=== PATIENT | female | born 1995 | race Caucasian/White ===

== ENCOUNTER 2017-12-21 05:41 | Inpatient (IN) | payer MEDICAID ==
[2017-12-21] MEDS: LACTATED RINGER'S 500 ML IV ×5 (06:07→22:07)
[2017-12-21] MEDS ORDERED: METHYLERGONOVINE 0.2 MG INJ IM ×2 (06:30→12:00)
[2017-12-21] MEDS ORDERED: OXYTOCIN 30 UNITS/LR 500 ML IV ×4 (06:30→12:00)
[2017-12-21] MEDS ORDERED: HYDROCODONE/APAP (5/325) TAB PO (06:30)
[2017-12-21] MEDS ORDERED: BUTORPHANOL 2 MG INJ IV (06:30)
[2017-12-21] MEDS ORDERED: CARBOPROST 250 MCG INJ IM ×2 (06:30→12:00)
[2017-12-21] MEDS ORDERED: IBUPROFEN 600 MG TAB PO (06:30)
[2017-12-21] MEDS ORDERED: MISOPROSTOL 200 MCG TAB PR ×2 (06:30→12:00)
[2017-12-21] MEDS: BUTORPHANOL 2 MG INJ IV (07:02)
[2017-12-21] MEDS: LACTATED RINGER'S 1,000 ML IV (07:14)
[2017-12-21 07:24] LABS: ADD MAN DIFF? NO
[2017-12-21 07:25] LABS: WHITE BLOOD COUNT 18.5 10^3/ul (4.8-10.8)
[2017-12-21 07:25] LABS: BASOPHILS % 0.2 % (0.0-2.0); EOSINOPHILS % 0.1 % (0.0-7.0); HEMATOCRIT 40.8 % (37.0-47.0); HEMOGLOBIN 13.8 g/dl (12.0-16.0); LYMPHOCYTES # 2.2 10^3/ul (0.8-2.9); LYMPHOCYTES % 11.7 % (15.0-51.0); MEAN CORPUSCULAR HEMOGLOBIN 30.3 pg (29.0-33.0); MEAN CORPUSCULAR HGB CONC 33.8 g/dl (32.0-37.0); MEAN CORPUSCULAR VOLUME 89.5 fl (82.0-101.0); MONOCYTE # 0.8 10^3/ul (0.3-0.9); MONOCYTES % 4.3 % (0.0-11.0); NEUTROPHIL # 15.4 10^3/ul (1.6-7.5); NEUTROPHILS % 83.1 % (39.0-77.0); PLATELET COUNT 207 10^3/UL (140-415); RED BLOOD COUNT 4.56 10^6/ul (4.20-5.40); RED CELL DISTRIBUTION WIDTH 13.9 % (11.5-14.5)
[2017-12-21 07:45] LABS: INR 0.85; PROTIME 11.7 Sec (11.9-14.9); PT RATIO 0.9
[2017-12-21 07:57] LABS: ADD UMIC YES; UR ASCORBIC ACID 20 mg/dL (NEGATIVE); UR BACTERIA FEW /HPF (NONE SEEN); UR BILIRUBIN (Dip) NEGATIVE (NEGATIVE); UR BLOOD (Dip) NEGATIVE (NEGATIVE); UR CALCIUM OXALATE CRYSTAL MANY /HPF (NONE SEEN); UR CLARITY CLOUDY (CLEAR); UR COLOR YELLOW (YELLOW); UR GLUCOSE (Dip) NEGATIVE (NEGATIVE); UR KETONES (Dip) TRACE mg/dL (NEGATIVE); UR LEUKOCYTE ESTERASE (Dip) NEGATIVE Leu/ul (NEGATIVE); UR MUCUS FEW /HPF (NONE SEEN); UR NITRITE (Dip) NEGATIVE (NEGATIVE); UR RBC 1 /HPF (0-5); UR SPECIFIC GRAVITY (Dip) 1.015 (1.003-1.030); UR SQUAMOUS EPITHELIAL CELL FEW /HPF (FEW); UR TOTAL PROTEIN (Dip) NEGATIVE (NEGATIVE); UR UROBILINOGEN (Dip) NEGATIVE (NEGATIVE); UR WBC 4 /HPF (0-5)
[2017-12-21 08:13] LABS: AMPHETAMINE/METHAMPHETAMINE Negative (NEGATIVE); BARBITURATES Negative (NEGATIVE); BENZODIAZEPINES Negative (NEGATIVE); CANNABINOIDS Negative (NEGATIVE); COCAINE Negative (NEGATIVE); OPIATES Negative (NEGATIVE)
[2017-12-21 08:20] LABS: HEPATITIS B SURFACE ANTIGEN NEGATIVE (NEGATIVE)
[2017-12-21] MEDS: OXYTOCIN 30 UNITS/LR 500 ML IV ×2 (11:18→16:40)
[2017-12-21] MEDS ORDERED: ONDANSETRON 4 MG INJ IV (12:00)
[2017-12-21] MEDS ORDERED: OXYCODONE/ASPIRIN (4.88/325) TAB PO (12:00)
[2017-12-21] MEDS ORDERED: DIPHENHYDRAMINE 25 MG CAP PO (12:00)
[2017-12-21] MEDS ORDERED: DIBUCAINE 1% 30 GM OINT TOP (12:00)
[2017-12-21] MEDS ORDERED: ACETAMINOPHEN 325 MG TAB PO (12:00)
[2017-12-21] MEDS: LIDOCAINE 1% (MPF) 30 ML INJ INJ (12:14)
[2017-12-21] MEDS: IBUPROFEN 600 MG TAB PO ×3 (13:15→23:39)
[2017-12-21 16:46] LABS: RAPID PLASMA REAGIN NONREACTIVE (NR)
[2017-12-21] MEDS: BENZOCAINE 20% 56 ML SPRAY TOP (17:16)
[2017-12-21] MEDS: WITCH HAZEL/GLYCERIN PAD PR (17:17)
[2017-12-21] MEDS: OXYCODONE/ASPIRIN (4.88/325) TAB PO (19:48)
[2017-12-21] MEDS: SENNA/DOCUSATE NA (8.6MG/50MG) TAB PO (20:33)
[2017-12-22] MEDS: LACTATED RINGER'S 500 ML IV ×2 (02:07→06:07)
[2017-12-22] MEDS: IBUPROFEN 600 MG TAB PO ×4 (05:43→23:34)
[2017-12-22 08:26] LABS: ADD MAN DIFF? NO
[2017-12-22 08:32] LABS: WHITE BLOOD COUNT 14.8 10^3/ul (4.8-10.8)
[2017-12-22 08:32] LABS: BASOPHILS % 0.1 % (0.0-2.0); EOSINOPHILS % 0.1 % (0.0-7.0); HEMATOCRIT 31.5 % (37.0-47.0); HEMOGLOBIN 10.8 g/dl (12.0-16.0); LYMPHOCYTES # 2.8 10^3/ul (0.8-2.9); MEAN CORPUSCULAR HEMOGLOBIN 30.8 pg (29.0-33.0); MEAN CORPUSCULAR HGB CONC 34.3 g/dl (32.0-37.0); MEAN CORPUSCULAR VOLUME 89.7 fl (82.0-101.0); MEAN PLATELET VOLUME 11.2 fl (7.4-10.4); MONOCYTE # 0.7 10^3/ul (0.3-0.9); MONOCYTES % 4.7 % (0.0-11.0); NEUTROPHIL # 11.2 10^3/ul (1.6-7.5); NEUTROPHILS % 75.4 % (39.0-77.0); PLATELET COUNT 172 10^3/UL (140-415); RED BLOOD COUNT 3.51 10^6/ul (4.20-5.40); RED CELL DISTRIBUTION WIDTH 14.6 % (11.5-14.5)
[2017-12-22] MEDS: SENNA/DOCUSATE NA (8.6MG/50MG) TAB PO ×2 (10:28→21:11)
[2017-12-23] MEDS: IBUPROFEN 600 MG TAB PO ×2 (05:39→11:57)
[2017-12-23] MEDS: SENNA/DOCUSATE NA (8.6MG/50MG) TAB PO (09:43)
== END 2017-12-23 16:45 | disposition home or self-care (01) | DRG 775 ==
LOC: OBT 05:41 → L-D 05:42 → OBT 06:16 → L-D 06:16 → PP1 16:24
PROC: 10E0XZZ Delivery of Products of Conception, External Approach (ICD-10-PCS; principal; 2017-12-21)
PROC: 0W8NXZZ Division of Female Perineum, External Approach (ICD-10-PCS; 2017-12-21)
DX: O80 Encounter for full-term uncomplicated delivery (principal); Z37.0 Single live birth; Z3A.37 37 weeks gestation of pregnancy
CPT/HCPCS: 76815; 80307; 81001; 85025; 85610; 85730; 86592; 86850; 86900; 86901; 87086; 87340